=== PATIENT | female | born 1970 | race Caucasian/White ===

== ENCOUNTER → 2016-12-15 | Outpatient (CLI) | payer OTHER ==
[2004-09-05 03:40] VITALS: TEMP 98.6
== END ==
LOC: MC.RAD 13:16
DX: Z12.31 Encounter for screening mammogram for malignant neoplasm of breast (principal)

== ENCOUNTER 2018-01-11 18:34 | Emergency (ER) | payer OTHER ==
[~2018-01-11] VITALS: Ht 160 cm; Wt 57.7 kg
[2018-01-11 18:59] VITALS: TEMP 99.2
[2018-01-11 19:21] LABS: COLLECTION METHOD CLEAN CATCH
[2018-01-11 19:26] LABS: MUCOUS Present /lpf; PH 6 (5-8); URINE APPEARANCE Hazy; URINE BACTERIA None Seen /hpf; URINE BILIRUBIN Negative (NEGATIVE); URINE BLOOD Negative (NEGATIVE); URINE COLOR Yellow; URINE GLUCOSE Negative (NEGATIVE); URINE KETONE Trace (NEGATIVE); URINE LEUKOCYTE ESTERASE Trace (NEGATIVE); URINE NITRATE Negative (NEGATIVE); URINE PROTEIN(semi-quant) Negative (NEGATIVE); URINE RBC 0-2 /hpf; URINE UROBILINOGEN Negative (NEGATIVE)
[2018-01-11 19:31] LABS: BASO % 0.2 % (0.0-2.0); EOS % 0.1 % (0-4.0); GRAN # 11.5 (1.4-6.5); GRAN % 79.7 % (42.2-75.2); HEMATOCRIT 41.4 % (37.0-47.0); HEMOGLOBIN 13.9 g/dl (12.5-16.0); LYMPH # 1.8 (1.2-3.4); LYMPH % 12.6 % (20.0-51.0); MEAN CELL VOLUME 92 fl (80.0-100.0); MEAN CORPUSCULAR HEMOGLOBIN 31 pg (27.0-31.0); MEAN CORPUSCULAR HGB CONC 34 g/dl (33.0-37.0); MEAN PLATELET VOLUME 9.2 fl (7.4-10.4); MONO % 7.1 % (1.7-9.3); PLATELET COUNT 266 K/mm3 (130-400); RED BLOOD COUNT 4.49 M/mm3 (4.10-5.30); REDCELL DISTRIBUTION WIDTH-CV 12.2 % (11.5-14.5)
[2018-01-11 19:44] LABS: ALBUMIN 4.4 gm/dL (3.5-5.0); BILIRUBIN,TOTAL 0.5 mg/dL (0.0-1.0); C-REACTIVE PROTEIN 1.7 mg/dL (0.0-0.9); CALCIUM 9.2 mg/dL (8.4-10.2); CREATININE, serum 0.74 mg/dL (0.52-1.25); POTASSIUM 3.4 mmol/L (3.4-5.0); TOTAL PROTEIN 7.8 gm/dL (6.4-8.2)
[2018-01-11] MEDS ORDERED: ZOFRAN ODT4 MG PO (21:06)
[2018-01-11] MEDS ORDERED: MACROBID 1100 MG/CAP PO (21:07)
[2018-01-11 21:21] VITALS: BP 132/69; PULSE 82
== END 2018-01-11 21:22 | disposition home or self-care (01) ==
LOC: COL.ER 18:34
PROVIDERS: Physician Assistant
DX: N39.0 Urinary tract infection, site not specified (principal)
CPT/HCPCS: Q9967

== ENCOUNTER → 2018-01-30 | Outpatient (CLI) | payer OTHER ==
[2004-09-05 03:40] VITALS: TEMP 98.6
[~2018-01-30] MED LIST: MACROBID 1100 MG/CAP PO; ZOFRAN ODT4 MG PO
== END ==
LOC: MC.RAD 15:25
DX: Z12.31 Encounter for screening mammogram for malignant neoplasm of breast (principal)

== ENCOUNTER → 2019-03-11 | Outpatient (CLI) | payer OTHER ==
[2004-09-05 03:40] VITALS: TEMP 98.6
== END ==
LOC: MC.RAD 14:36
DX: Z12.31 Encounter for screening mammogram for malignant neoplasm of breast (principal)

== ENCOUNTER → 2021-02-11 | Outpatient (CLI) | payer OTHER ==
[2004-09-05 03:40] VITALS: TEMP 98.6
== END ==
LOC: MC.RAD 10:42
DX: Z12.31 Encounter for screening mammogram for malignant neoplasm of breast (principal)